=== PATIENT | male | born 1975 | race Caucasian/White ===

== ENCOUNTER 2016-12-17 21:44 | Emergency (ER) | payer SELFPAY ==
[2016-12-17] MEDS ORDERED: 0.9 % SODIUM CHLORIDE 500 ML IV ONE ×2 (22:11→22:50)
[2016-12-17] MEDS ORDERED: VANCOMYCIN HCL 1.25 GM in 0.9 % SODIUM CHLORIDE 500 ML IV ONE (22:24)
[2016-12-17 22:25] LABS: BASOPHILS % 0.3 (0.0-1.5); EOSINOPHILS % 2.8 % (0.0-6.8); MEAN CORPUSCULAR HEMOGLOBIN 30.3 pg (28.0-34.0); MEAN CORPUSCULAR VOLUME 88.6 fl (80.0-100.0); MONOCYTES % 5.5 % (0.0-11.0); NEUTROPHILS # 12.4 # k/uL (1.4-7.7)
--- NOTE | 2016-12-17 22:30 | ED Physician Documentation ---
General Adult - HISTORIAN Historian: patient, spouse - HPI Stated Complaint: hand infection Chief Complaint: General Adult Onset: days ago (4) Timing: still present Severity: moderate Further Comments: yes (Pt is a 41 yo male with an infection in his L hand and streaking from his hand to his axilla. Pt had a minor injury to his L hand 4 days ago, when he pinched and punctured the web space between his thumb and index finger while using a tool. L hand has become very swollen in the past for days and pt has marked streaking in evidence from the L and to the axilla. Fever at home. 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 Pt has no significant PMHx.) - ROS CONST: weakness EYES/ENT: none CVS/RESP: none GI/: none MS/SKIN/LYMPH: other (L hand swelling, streaking from hand to axilla) NEURO/PSYCH: headache - PAST HX Past History: none Allergies/Adverse Reactions: Allergies Allergy/AdvReac Type Severity Reaction Status Date / Time No Known Allergies Allergy Verified 12/17/16 22:24 Home Medications: Ambulatory Orders Medication Instructions Recorded NK [NK] 10/02/12 - SOCIAL HX Smoking History: cigarettes Alcohol Use: occasionally Drug Use: none - FAMILY HX Family History: No - VITAL SIGNS Vital Signs: Vital Signs Temp Pulse Resp BP Pulse Ox 105/70 11/29/14 17:44 - REVIEWED ASSESSMENTS Nursing Assessment Reviewed: Yes Vitals Reviewed: Yes Progress - Progress Progress: 1 L NS IVF Zofran 4 mg IV Blood cx x 2 - pending Ertapenem 1 gm IV given in ER per Dr. Sun, [facility] Vancomycin 1.25 gm IV started in ER and continued in transit. Transfer to Hosp. Dr. Sun. ED Results Lab/Radiology - Lab Results Lab Results: Lab Results 12/17/16 22:15 WBC 14.50 K/ul H K/ul (4.00-12.00) RBC 5.33 M/ul H M/ul (3.90-5.20) Hgb 16.1 g/dL g/dL (12.0-18.0) Hct 47.3 % % (37.0-53.0) MCV 88.6 fl fl (80.0-100.0) MCH 30.3 pg pg (28.0-34.0) MCHC 34.1 g/dL g/dL (30.0-36.0) RDW 13.3 % % (11.3-14.3) Plt Count 157 K/mm3 K/mm3 (130-400) Neut % (Auto) 85.5 % H % (39.0-79.0) Lymph % (Auto) 5.2 % L % (16.0-50.0) [place] % (Auto) 5.5 % % (0.0-11.0) Eos % (Auto) 2.8 % % (0.0-6.8) Baso % (Auto) 0.3 (0.0-1.5) Neut # 12.4 # k/uL H # k/uL (1.4-7.7) Lymph # 0.8 # k/uL # k/uL (0.6-4.0) [place] # 0.8 # k/uL # k/uL (0.0-0.9) Eos # 0.4 # k/uL # k/uL (0.0-0.6) Baso # 0.0 # k/uL # k/uL (0.0-0.5) Reactive Lymphs % 0.8 % % (0.0-5.0) Reactive Lymphs # 0.1 # k/uL # k/uL (0.0-0.8) - Orders Orders: ED Orders Category Date Time Status BLOOD CULTURE Stat Lab 12/17/16 22:15 Received CBC/PLATELET/DIFF Routine Lab 12/17/16 22:15 Completed CMP [CMP] Routine Lab 12/17/16 22:15 Received 0.9 % Sodium Chloride [Normal Saline] 500 ml Med 12/17/16 22:11 Active IV NOW Vancomycin HCl [Vancocin] 1.25 gm Med 12/17/16 22:24 Active 0.9 % Sodium Chloride [Normal Saline] 500 ml IV NOW General Adult Physical Exam - PHYSICAL EXAM GENERAL APPEARANCE: moderate distress EENT: eye inspection normal, pharynx normal NECK: normal inspection, thyroid normal RESPIRATORY: no resp distress, chest non-tender, breath sounds normal CVS: reg rate & rhythm, heart sounds normal ABDOMEN: soft, no organomegaly, normal bowel sounds BACK: normal inspection SKIN: other (L hand swelling, streaking from hand to axilla.) EXTREMITIES: other (L hand swelling, streaking from hand to axilla.) NEURO: oriented X3, motor nml, sensation nml, other (lethargic) Discharge Clincal Impression: L hand infection, Sepsis Home Medications: Ambulatory Orders NK [NK] 10/02/12 Condition: Stable Disposition: 02 XFER [facility]M HOSP Decision to Admit: NO Decision Time: 23:20
[2016-12-17 22:43] LABS: eGFR (African) > 60; eGFR (Non-African) > 60
[2016-12-17] MEDS ORDERED: DIPH,PERTUSS(ACELL),TET VAC/PF 0.5 ML DISP.SYRIN IM ONE (22:44)
[2016-12-17] MEDS ORDERED: ONDANSETRON HCL/PF 4 MG/ 2ML VIAL IVP ONE (22:44)
[2016-12-17] MEDS ORDERED: ERTAPENEM SODIUM 1 GM VIAL ONE (23:01)
[2016-12-17] MEDS ORDERED: 0.9 % SODIUM CHLORIDE 50 ML IV ONE (23:03)
[2016-12-17] MEDS: ERTAPENEM SODIUM 1 GM in 0.9 % SODIUM CHLORIDE 50 ML IV ONE ×2 (23:10→23:36)
[2016-12-18 01:40] VITALS: BP 113/68
== END 2016-12-17 23:55 | disposition short-term general hospital (02) ==
LOC: ED 21:44
DX: L03.114 Cellulitis of left upper limb (principal); A41.9 Sepsis, unspecified organism
CPT/HCPCS: 80053; 85025; 87040; 90715; J1335; J2405; J3370; J7060; 90471; 96365; 96367; 96375; 99283; 99284; S1016